=== PATIENT | female | born 1995 | race Caucasian/White ===

== ENCOUNTER 2020-04-06 17:56 | Observation (INO) ==
[2020-04-06] MEDS ORDERED: NS 0.9% 1000 ml BAG 1,000 ML IV ONE (18:44)
[2020-04-06] MEDS ORDERED: Pantoprazole VIAL 40 MG VIAL IV ONE (19:59)
[2020-04-06] MEDS ORDERED: Ondansetron 4 mg VIAL 2 MG/ML 2 ml VIAL IV PRN (19:59)
[2020-04-06] MEDS ORDERED: NS 0.9% 1000 ml BAG 1,000 ML IV SCH (20:00)
[2020-04-06 20:11] LABS: Urine Benzodiazepine Screen None Detected (None Detect); Urine Opiates Screen None Detected (None Detect)
[2020-04-07 11:49] VITALS: BP 137/80
[2020-04-07] MEDS ORDERED: Thiamine 100 MG/ML 2 ml VIAL (200 mg) IV SCH (12:00)
[2020-04-07] MEDS ORDERED: Thiamine IV 250 MG in NS 0.9% 100 ML Q24H IV SCH (12:00)
== END 2020-04-07 14:20 | disposition home or self-care (01) ==
LOC: MED 17:56 → ED 17:56 → MED 21:47
PROVIDERS: ADMIT Hospitalist; ATTEND Internal Medicine